=== PATIENT | female | born 1980 | race Caucasian/White ===

== ENCOUNTER 2017-01-25 14:34 | Emergency (ER) | payer MEDICAID, OTHER ==
[2017-01-25 16:25] VITALS: BP 144/80
[2017-01-25] MEDS ORDERED: Benzocaine 20% Top Spray 56 GM Bottle TOP STA (17:25)
[2017-01-25] MEDS ORDERED: Lidocaine 4% Top Soln 4 ML LTA Syringe TOP ONE (17:32)
--- NOTE | 2017-01-25 17:41 | EDM.PDOC ---
ED HPI ENT - General Chief Complaint: ENT Problem Stated Complaint: LEFT EAR PAIN Time Seen by Provider: 01/25/17 17:22 Source: Reports: Patient, RN notes reviewed History Limitations: Reports: No limitations - History of Present Illness INITIAL COMMENTS - FREE TEXT/NARRATIVE: 36-year-old female presents emergency department with a complaint of left ear pain that has developed over the last 24 hours she does have a history of recurrent ear infections she's not had any fevers no sore throat no nausea vomiting shortness of breath chest pain denies any drainage - Related Data Allergies/ADRs: Allergies Allergy/AdvReac Type Severity Reaction Status Date / Time nicotine Allergy Other Verified 10/08/16 18:18 Penicillins Allergy Other Verified 10/08/16 18:18 Sulfa (Sulfonamide Allergy Other Verified 10/08/16 18:18 Antibiotics) varenicline tartrate Allergy Other Verified 10/08/16 18:18 [From Chantix] erythromycin base AdvReac Stomach Verified 10/08/16 18:18 Upset Home Meds: Home Meds Albuterol Sulfate [Proair Hfa] 2 puff IH Q4HR PRN 10/29/14 [History] Past Medical History HEENT History: Reports: Impaired vision Other HEENT History: Dry eye syndrome Cardiovascular History: Reports: Arrhythmia, Heart murmur Respiratory History: Reports: Asthma, Bronchitis, recurrent, Pneumonia, recurrent Genitourinary History: Reports: Pyelonephritis 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: Dysfunctional uterine bleeding, Endometriosis, , Other (see below) Other OB/BYN History: chronic ovarian pain Musculoskeletal History: Reports: Arthritis, Fracture Psychiatric History: Reports: PTSD Endocrine/Metabolic History: Reports: Hypothyroidism - Infectious Disease History Infectious Disease History: Reports: C-difficile - Past Surgical History HEENT Surgical History: Reports: Adenoidectomy, Oral surgery, Tonsillectomy Female Surgical History: Reports: Hysterectomy, Salpingo-oophorectomy Dermatological Surgical History: Reports: Other (see below) Social & Family History - Family History Family Medical History: Noncontributory Respiratory: Reports: COPD Psychiatric: Reports: ADHD Endocrine/Metabolic: Reports: Diabetes, type II Oncologic: Reports: Brain, Breast, Colon, Lung, Ovarian, Renal, Uterine - Tobacco Use Smoking Status *Q: Heavy Tobacco Smoker Years of Tobacco use: 15 Packs/Tins Daily: 1 - Caffeine Use Caffeine Use: Reports: Coffee, Energy drinks, Soda - Alcohol Use Days Per Week of Alcohol Use: 4 Number of Drinks Per Day: 2 Total Drinks Per Week: 8 - Recreational Drug Use Recreational Drug Use: Yes Drug Use in Last 12 Months: Yes Recreational Drug Type: Reports: Marijuana/Hashish Recreational Drug Use Frequency: Weekly ED ROS ENT - Review of Systems Review Of Systems: See Below Constitutional: Denies: fever HEENT: Reports: Ear pain. Denies: Ear discharge Respiratory: Reports: no symptoms Cardiovascular: Reports: No symptoms GI/Abdominal: Reports: No symptoms : Reports: no symptoms ED EXAM, ENT - Physical Exam Exam: See Below Exam Limited By: No limitations General Appearance: alert, WD/WN, no apparent distress Eye Exam: bilateral eye: normal inspection Ears: normal external exam, normal canal, hearing grossly normal, normal TMs ( on the right), TM bulging (left), TM dullness (left), TM erythema (left). No: TM perforation Nose: normal inspection, normal mucousa, no blood Mouth/Throat: Normal inspection, Normal gums, Normal lips, Normal oropharynx, Normal teeth Head: atraumatic, normocephalic Neck: normal inspection, supple, non-tender, full range of motion Respiratory/Chest: no respiratory distress, lungs clear, normal breath sounds, no accessory muscle use Cardiovascular: regular rate, rhythm, no murmur Course - Vital Signs Last Recorded V/S: Last Vital Signs Temp 98.7 F 01/25/17 17:03 Pulse 76 01/25/17 17:03 Resp 18 01/25/17 17:03 BP 144/80 H 01/25/17 17:03 Pulse Ox 96 01/25/17 17:03 - Orders/Labs/Meds Meds: Medications Discontinued Medications Generic Name Dose Route Start Last Admin Trade Name Freq PRN Reason Stop Dose Admin Benzocaine 1 gm 01/25/17 17:25 Izcb-S-Ubichls 20% [place] TOP 01/25/17 17:26 NOW STA Lidocaine 4 ml 01/25/17 17:32 Lidocaine 4% Top Soln TOP 01/25/17 17:33 ONETIME ONE Departure - Departure Time of Disposition: 17:40 Disposition: Home, Self-Care 01 Condition: good Clinical Impression: Otitis media Qualifiers: Otitis media type: suppurative Laterality: left Chronicity: acute Recurrence: recurrent Spontaneous tympanic membrane rupture: without spontaneous rupture Qualified Code(s): H66.005 - Acute suppurative otitis media without spontaneous rupture of ear drum, recurrent, left ear Forms: ED Department Discharge Additional Instructions: take full course of antibiotics, use lidocaine as needed for pain control, Please followup with your primary care provider in 3-5 days if not better, please call return to the emergency department with worsening of symptoms. - Assessment/Plan Plan: Assessment Acuity = acute Site and laterality = left otitis media Etiology = probable bacterial cause Manifestations = otalgia Location of injury = home Lab values = none Plan prescription written for Omnicef 300 mg by mouth twice a day in combination with lidocaine solution 2 mL topical left ear every 2 hours as needed followup with primary care in 3-5 days if not better Patient was in agreement with the plan all questions were answered, they were instructed to return to the emergency department or call for worsening symptoms. This note was dictated using [employer] voice recognition software please call with any questions.
[2017-01-25] MEDS ORDERED: Lidocaine 4% Top Soln 50 ML Bottle TOP ONE (18:00)
== END 2017-01-25 17:56 | disposition home or self-care (01) ==
LOC: JP.ED 14:34
DX: H66.005 Acute suppurative otitis media without spontaneous rupture of ear drum, recurrent, left ear (principal); J45.909 Unspecified asthma, uncomplicated; E03.9 Hypothyroidism, unspecified; F17.210 Nicotine dependence, cigarettes, uncomplicated; Z90.710 Acquired absence of both cervix and uterus; Z90.721 Acquired absence of ovaries, unilateral; Z98.890 Other specified postprocedural states; Z88.0 Allergy status to penicillin; Z88.1 Allergy status to other antibiotic agents; Z88.2 Allergy status to sulfonamides; Z88.8 Allergy status to other drugs, medicaments and biological substances
CPT/HCPCS: 99283; A9270

== ENCOUNTER 2017-07-19 14:13 | Emergency (ER) | payer SELFPAY ==
[2017-07-19 14:27] VITALS: BP 134/82
[2017-07-19] MEDS ORDERED: Aspirin 81 MG Tab.Chew PO ONE (14:39)
--- NOTE | 2017-07-19 14:44 | EDM.PDOC ---
ED HPI GENERAL MEDICAL PROBLEM - General Chief Complaint: Upper Extremity Injury/Pain Stated Complaint: RIGHT HAND NUMBNESS Time Seen by Provider: 07/19/17 14:25 Source of Information: Reports: Patient, Old Records History Limitations: Reports: No Limitations - History of Present Illness INITIAL COMMENTS - FREE TEXT/NARRATIVE: 36 yo female here with a few day hx of R index finger numbness and now R hand numbness. No weakness. No hx of carpal tunnel. Smokes 1 ppd x 20 yrs. Unknown cholesterol status. No diabetes. Has a hx of an irregular heart beat. Denies neck pain or pain shooting down her arm in association with coughing or turning her head. Onset: Today Onset Date: 07/19/17 Duration: Hour(s): Location: Reports: Upper Extremity, Right Quality: Reports: Other (numbness) Severity: Moderate Improves with: Reports: None Worsens with: Reports: Other (? 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) (none) - Related Data Allergies Allergy/AdvReac Type Severity Reaction Status Date / Time nicotine Allergy Other Verified 10/08/16 18:18 Penicillins Allergy Other Verified 10/08/16 18:18 Sulfa (Sulfonamide Allergy Other Verified 10/08/16 18:18 Antibiotics) varenicline tartrate Allergy Other Verified 10/08/16 18:18 [From Chantix] erythromycin base AdvReac Stomach Verified 10/08/16 18:18 Upset Home Meds: Home Meds Albuterol Sulfate [Proair Hfa] 2 puff IH Q4HR PRN 10/29/14 [History] Past Medical History HEENT History: Reports: Impaired Vision Other HEENT History: Dry eye syndrome Cardiovascular History: Reports: Arrhythmia, Heart Murmur Respiratory History: Reports: Asthma, Bronchitis, Recurrent, Pneumonia, Recurrent Genitourinary History: Reports: Pyelonephritis 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: Dysfunctional Uterine Bleeding, Endometriosis, , Other (See Below) Other OB/BYN History: chronic ovarian pain Musculoskeletal History: Reports: Arthritis, Fracture Psychiatric History: Reports: PTSD Endocrine/Metabolic History: Reports: Hypothyroidism - Infectious Disease History Infectious Disease History: Reports: C-Difficile - Past Surgical History HEENT Surgical History: Reports: Adenoidectomy, Oral Surgery, Tonsillectomy Female Surgical History: Reports: Hysterectomy, Salpingo-Oophorectomy Dermatological Surgical History: Reports: Other (See Below) Social & Family History - Family History Family Medical History: Noncontributory Respiratory: Reports: COPD Psychiatric: Reports: ADHD Endocrine/Metabolic: Reports: Diabetes, type II Oncologic: Reports: Brain, Breast, Colon, Lung, Ovarian, Renal, Uterine - Tobacco Use Smoking Status *Q: Current Every Day Smoker Years of Tobacco use: 20 Packs/Tins Daily: 1 - Caffeine Use Caffeine Use: Reports: Coffee - Alcohol Use Days Per Week of Alcohol Use: 4 Number of Drinks Per Day: 2 Total Drinks Per Week: 8 - Recreational Drug Use Recreational Drug Use: Yes Drug Use in Last 12 Months: Yes Recreational Drug Type: Reports: Marijuana/Hashish Recreational Drug Use Frequency: Socially Review of Systems - Review of Systems Review Of Systems: See Below Constitutional: Reports: No Symptoms Eyes: Reports: No Symptoms Ears: Reports: No Symptoms Nose: Reports: No Symptoms Mouth/Throat: Reports: No Symptoms Respiratory: Reports: No Symptoms Cardiovascular: Reports: Irregular Heart Rate GI/Abdominal: Reports: No Symptoms Genitourinary: Reports: No Symptoms Musculoskeletal: Reports: No Symptoms Skin: Reports: No Symptoms Neurological: Reports: Numbness (R hand that started a few days ago as index finger numbness. ). Denies: Confusion, Dizziness, Headache, Pre-Existing Deficit, Trouble Speaking, Difficulty Walking, Weakness, Change in Speech, Gait Disturbance Psychiatric: Reports: No Symptoms ED EXAM, GENERAL - Physical Exam Exam: See Below Exam Limited By: No Limitations General Appearance: Alert, WD/WN, No Apparent Distress Eye Exam: Bilateral Eye: EOMI, Normal Inspection, PERRL Ears: Normal External Exam, Normal Canal, Hearing Grossly Normal Ear Exam: Bilateral Ear: Auricle Normal, Canal Normal Nose: Normal Inspection, Normal Mucosa, No Blood Throat/Mouth: Normal Inspection, Normal Lips, Normal Oropharynx, Normal Voice, No Airway Compromise Head: Atraumatic, Normocephalic Neck: Normal Inspection, Supple, Non-Tender Respiratory/Chest: No Respiratory Distress, Lungs Clear, Normal Breath Sounds, No Accessory Muscle Use Cardiovascular: Normal Peripheral Pulses, No Edema, Extra Beats, Irregularly Irregular. No: Bradycardia, Tachycardia GI/Abdominal: Normal Bowel Sounds, Soft Back Exam: Normal Inspection. No: CVA Tenderness (R), CVA Tenderness (L) Extremities: Normal Inspection, Normal Range of Motion, Non-Tender, No Pedal Edema Neurological: Alert, Oriented, CN II-XII Intact, Normal Cognition, Normal Gait, Normal Reflexes, Other ( R hand numb, radial side more numb than ulnar side. Neg Tinnel's or Phalen's tests. ) Psychiatric: Normal Affect, Normal Mood Skin Exam: Warm, Dry, Intact, Normal Color, No Rash Lymphatic: No Adenopathy Course - Vital Signs Last Recorded V/S: Last Vital Signs Temp 36.4 C 07/19/17 14:26 Pulse 70 07/19/17 14:26 Resp 18 07/19/17 14:26 BP 134/82 07/19/17 14:26 Pulse Ox 95 07/19/17 14:26 - Orders/Labs/Meds Orders: Active Orders 24 hr Category Date Time Status Cardiac Monitoring [RC] .As Directed Care 07/19/17 14:36 Active Labs: Laboratory Tests 07/19/17 07/19/17 Range/Units 14:47 14:47 WBC 11.6 H (4.5-11.0) K/uL RBC 5.02 (3.30-5.50) M/uL Hgb 16.7 H (12.0-15.0) g/dL Hct 48.8 H (36.0-48.0) % MCV 97 (80-98) fL MCH 33 H (27-31) pg MCHC 34 (32-36) % Plt Count 327 (150-400) K/uL Sodium 142 (140-148) mmol/L Potassium 4.1 (3.6-5.2) mmol/L Chloride 104 (100-108) mmol/L Carbon Dioxide 31 (21-32) mmol/L Anion Gap 7.3 (5.0-14.0) mmol/L BUN 12 (7-18) mg/dL Creatinine 0.9 (0.6-1.0) mg/dL Est Cr Clr Drug Dosing 85.42 mL/min Estimated GFR (MDRD) > 60 (>60) Glucose 106 (74-106) mg/dL Calcium 9.3 D (8.5-10.1) mg/dL Troponin I < 0.017 (0.000-0.056) ng/mL Meds: Medications Discontinued Medications Generic Name Dose Route Start Last Admin Trade Name Ngozi PRN Reason Stop Dose Admin Aspirin 324 mg 07/19/17 14:39 07/19/17 15:07 Aspirin PO 07/19/17 14:40 324 mg ONETIME ONE Administration - Radiology Interpretation Free Text/Narrative:: Negative Head CT CT Results Date: 07/19/17 CT Results Time: 14:59 Departure - Departure Time of Disposition: 15:40 Disposition: Home, Self-Care 01 Condition: Good Clinical Impression: Numbness of right hand, Tobacco abuse - Discharge Information Referrals: Candido Montenegro Sr, MD [Primary Care Provider] - Forms: ED Department Discharge - My Orders Last 24 Hours: My Active Orders 07/19/17 14:36 Cardiac Monitoring [RC] .As Directed - Assessment/Plan Last 24 Hours: My Active Orders 07/19/17 14:36 Cardiac Monitoring [RC] .As Directed
--- NOTE | 2017-07-19 15:03 | CT ---
Head wo Cont Total DLP 731 mGycm. INDICATION: R hand numbness since awakening today COMPARISON: None. FINDINGS: No acute intracranial hemorrhage, mass, or edema. Ventricular size is within normal limits. Visualized paranasal sinuses and mastoid air cells are clear. Arachnoid granulation left transverse sinus is of no clinical significance. Remainder negative. IMPRESSION: Negative head CT.
== END 2017-07-19 16:46 | disposition home or self-care (01) ==
LOC: JP.ED 14:13
DX: R20.0 Anesthesia of skin (principal); J45.909 Unspecified asthma, uncomplicated; M19.90 Unspecified osteoarthritis, unspecified site; E03.9 Hypothyroidism, unspecified; F17.210 Nicotine dependence, cigarettes, uncomplicated; Z90.710 Acquired absence of both cervix and uterus; Z90.721 Acquired absence of ovaries, unilateral; Z98.890 Other specified postprocedural states; Z88.0 Allergy status to penicillin; Z88.1 Allergy status to other antibiotic agents; Z88.2 Allergy status to sulfonamides; Z88.8 Allergy status to other drugs, medicaments and biological substances
CPT/HCPCS: 36415; 70450; 80048; 84484; 85027; 99284; A9270; 99283

== ENCOUNTER 2020-05-05 06:38 | Emergency (ER) | payer MEDICAID ==
[2020-05-05 06:54] VITALS: BP 124/81; PULSE 92
[2020-05-05] MEDS ORDERED: Tetracaine HCl/PF 0.5% 4 ML Bottle EYELF ONE (07:03)
--- NOTE | 2020-05-05 07:20 | EDM.PDOC ---
ED HPI GENERAL MEDICAL PROBLEM - General Chief Complaint: Eye Problems Stated Complaint: SOMETHING IN LEFT EYE Time Seen by Provider: 05/05/20 07:00 Source of Information: Reports: Patient, Old Records History Limitations: Reports: No Limitations - History of Present Illness INITIAL COMMENTS - FREE TEXT/NARRATIVE: 39 yo female felt something in her L eye last night and flushed it under running water. This morning she awoke to more pain and blurred vision in that eye. Did not see anything in that eye. Tetanus is UTD. Got a ride to the ER. 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) (eye flushed) Left Eye Pain Score (Numeric/FACES): 9 - Related Data Allergies Allergy/AdvReac Type Severity Reaction Status Date / Time nicotine Allergy Other Verified 05/05/20 06:54 Penicillins Allergy Other Verified 05/05/20 06:54 Sulfa (Sulfonamide Allergy Other Verified 05/05/20 06:54 Antibiotics) varenicline tartrate Allergy Other Verified 05/05/20 06:54 [From Chantix] erythromycin base AdvReac Stomach Verified 05/05/20 06:54 Upset Home Meds: Home Meds Albuterol Sulfate [Proair Hfa] 2 puff IH Q4HR PRN 10/29/14 [History] Montelukast [Singulair] 10 mg PO DAILY 05/05/20 [History] Past Medical History HEENT History: Reports: Impaired Vision Other HEENT History: Dry eye syndrome Cardiovascular History: Reports: Arrhythmia, Heart Murmur Respiratory History: Reports: Asthma, Bronchitis, Recurrent, Pneumonia, Recurrent Genitourinary History: Reports: Pyelonephritis 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: Dysfunctional Uterine Bleeding, Endometriosis, , Other (See Below) Other RESIDENT CARE ASSISTANT History: chronic ovarian pain Musculoskeletal History: Reports: Arthritis, Fracture Psychiatric History: Reports: PTSD Endocrine/Metabolic History: Reports: Hypothyroidism - Infectious Disease History Infectious Disease History: Reports: C-Difficile - Past Surgical History HEENT Surgical History: Reports: Adenoidectomy, Oral Surgery, Tonsillectomy Female Surgical History: Reports: Hysterectomy, Salpingo-Oophorectomy Dermatological Surgical History: Reports: Other (See Below) Social & Family History - Family History Family Medical History: Noncontributory Respiratory: Reports: COPD Psychiatric: Reports: ADHD Endocrine/Metabolic: Reports: Diabetes, type II Oncologic: Reports: Brain, Breast, Colon, Lung, Ovarian, Renal, Uterine - Tobacco Use Smoking Status *Q: Current Every Day Smoker Years of Tobacco use: 20 Packs/Tins Daily: 1.5 - Caffeine Use Caffeine Use: Reports: Coffee, Soda - Alcohol Use Days Per Week of Alcohol Use: 4 Number of Drinks Per Day: 2 Total Drinks Per Week: 8 - Recreational Drug Use Recreational Drug Use: Yes Recreational Drug Type: Reports: Marijuana/Hashish Recreational Drug Use Frequency: Monthly ED ROS GENERAL - Review of Systems Review Of Systems: See Below Constitutional: Reports: No Symptoms HEENT: Reports: Eye Pain (L eye), Vision Change. Denies: Eye Discharge Respiratory: Reports: No Symptoms Skin: Reports: No Symptoms Neurological: Reports: No Symptoms ED EXAM GENERAL W FULL EYE - Physical Exam Exam: See Below Exam Limited By: No Limitations General Appearance: Alert, WD/WN, No Apparent Distress Eye Exam: Bilateral Eye: Conjunctival Injection (L eye), EOMI, PERRL Eyelids: Bilateral: Normal Appearance Conjunctiva & Sclera: Right: Normal Appearance, Left: Injected Cornea Exam: Left: Corneal Abrasion (large all across the central cornea), Examined with Flourescein Extraocular Movements: Bilateral: Intact Ears: Normal External Exam, Normal Canal, Hearing Grossly Normal Nose: Normal Inspection Throat/Mouth: Normal Inspection, Normal Lips, Normal Voice, No Airway Compromise Head: Atraumatic, Normocephalic Neck: Normal Inspection Respiratory/Chest: No Respiratory Distress ED EYE w/ Add Procedure - Eye Procedure Alcaine Drops Administered: Yes (tetracaine eye drops) Cyclogel 2 Drops Administered: Left Eye - Additional/Other Procedure(s) Other (Free Text) Procedure(s) [Text1]: fluorescein staining of L eye reveals large central corneal abrasion. Course - Vital Signs Last Recorded V/S: Last Vital Signs Temp 35.5 C L 05/05/20 06:51 Pulse 92 05/05/20 06:51 Resp 16 05/05/20 06:51 BP 124/81 05/05/20 06:51 Pulse Ox 95 05/05/20 06:51 - Orders/Labs/Meds Meds: Medications Discontinued Medications Generic Name Dose Route Start Last Admin Trade Name Ngozi PRN Reason Stop Dose Admin Tetracaine HCl 1 ml 05/05/20 07:03 05/05/20 07:06 Tetracaine 0.5% Steri-Unit Dora EYELF 05/05/20 07:04 1 ml ASDIRECTED ONE Administration Departure - Departure Time of Disposition: 07:40 Disposition: Home, Self-Care 01 Condition: Fair Clinical Impression: Corneal abrasion Qualifiers: Encounter type: initial encounter Laterality: left Qualified Code(s): S05.02XA - Injury of conjunctiva and corneal abrasion without foreign body, left eye, initial encounter - Discharge Information *PRESCRIPTION DRUG MONITORING PROGRAM REVIEWED*: No *COPY OF PRESCRIPTION DRUG MONITORING REPORT IN PATIENT DEMETRA: No Instructions: Corneal Abrasion, [id number] Referrals: PCP,None [Primary Care Provider] - Forms: ED Department Discharge Additional Instructions: No rubbing of the affected eye. Rest in a dark room for the next 24 hrs. Apply Erythromycin ointment 1/2 inch strip to the left eye approx every 8hrs for the next 24-36 hrs. Recheck tomorrow afternoon with an eye doctor if you are having any continued blurring or pain. Take ibuprofen 400 mg every 6 hrs and if needed [place] for pain relief. Sepsis Event Note (ED) - Evaluation Sepsis Screening Result: No Definite Risk - Focused Exam Vital Signs: Vital Signs Temp Pulse Resp BP Pulse Ox 05/05/20 06:51 35.5 C L 92 16 124/81 95
[2020-05-05] MEDS ORDERED: Cyclopentolate 1% Opth Soln 2 ML Bottle EYELF ONE (07:21)
== END 2020-05-05 07:54 | disposition home or self-care (01) ==
LOC: JP.ED 06:38
DX: S05.02XA Injury of conjunctiva and corneal abrasion without foreign body, left eye, initial encounter (principal); J45.909 Unspecified asthma, uncomplicated; F17.210 Nicotine dependence, cigarettes, uncomplicated; Z88.0 Allergy status to penicillin; Z88.8 Allergy status to other drugs, medicaments and biological substances; Z88.2 Allergy status to sulfonamides; Z88.1 Allergy status to other antibiotic agents; Z79.899 Other long term (current) drug therapy; X58.XXXA Exposure to other specified factors, initial encounter
CPT/HCPCS: 99283

== ENCOUNTER 2020-06-23 12:28 | Emergency (ER) | payer MEDICAID ==
[2020-06-23 12:54] VITALS: BP 120/67; PULSE 84
[2020-06-23] MEDS ORDERED: Proparacaine 0.5% Ophth Soln 15 ML Bottle EYELF ONE (13:16)
--- NOTE | 2020-06-23 13:35 | EDM.PDOC ---
ED HPI GENERAL MEDICAL PROBLEM - General Chief Complaint: Eye Problems Stated Complaint: SCRATCHED LEFT EYE Time Seen by Provider: 06/23/20 13:15 Source of Information: Reports: Patient History Limitations: Reports: No Limitations - History of Present Illness INITIAL COMMENTS - FREE TEXT/NARRATIVE: 39-year-old female with left eye irritation since this morning which she thinks she got some sand in her eye and rubbed her eye. It is now very irritated, she is photophobic and having trouble opening her eye. Something similar happened earlier this year where she had a very large abrasion. She does not wear contacts. Onset: Sudden Duration: Hour(s): (Symptoms started about 4 hours ago) left eye Pain Score (Numeric/FACES): 7 - Related Data Allergies Allergy/AdvReac Type Severity Reaction Status Date / Time nicotine Allergy Other Verified 05/05/20 06:54 Penicillins Allergy Other Verified 05/05/20 06:54 Sulfa (Sulfonamide Allergy Other Verified 05/05/20 06:54 Antibiotics) varenicline tartrate Allergy Other Verified 05/05/20 06:54 [From Chantix] erythromycin base AdvReac Stomach Verified 05/05/20 06:54 Upset erythromycin eye oint Allergy Swelling Uncoded 06/23/20 12:49 Home Meds: Home Meds Albuterol Sulfate [Proair Hfa] 2 puff IH Q4HR PRN 10/29/14 [History] Montelukast [Singulair] 10 mg PO DAILY 05/05/20 [History] Past Medical History HEENT History: Reports: Impaired Vision Other HEENT History: Dry eye syndrome Cardiovascular History: Reports: Arrhythmia, Heart Murmur Respiratory History: Reports: Asthma, Bronchitis, Recurrent, Pneumonia, Recurrent Genitourinary History: Reports: Pyelonephritis 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: Dysfunctional Uterine Bleeding, Endometriosis, , Other (See Below) Other RELAY ASSEMBLER History: chronic ovarian pain Musculoskeletal History: Reports: Arthritis, Fracture Psychiatric History: Reports: PTSD Endocrine/Metabolic History: Reports: Hypothyroidism - Infectious Disease History Infectious Disease History: Reports: C-Difficile - Past Surgical History HEENT Surgical History: Reports: Adenoidectomy, Oral Surgery, Tonsillectomy Cardiovascular Surgical History: Reports: None Female Surgical History: Reports: Hysterectomy Social & Family History - Family History Family Medical History: Noncontributory Respiratory: Reports: COPD Psychiatric: Reports: ADHD Endocrine/Metabolic: Reports: Diabetes, type II Oncologic: Reports: Brain, Breast, Colon, Lung, Ovarian, Renal, Uterine - Tobacco Use Smoking Status *Q: Current Every Day Smoker Years of Tobacco use: 20 Packs/Tins Daily: 1 - Caffeine Use Caffeine Use: Reports: Coffee, Soda - Recreational Drug Use Recreational Drug Use: Yes Recreational Drug Type: Reports: Marijuana/Hashish ED ROS GENERAL - Review of Systems Review Of Systems: See Below Constitutional: Denies: Fever, Chills HEENT: Reports: Eye Pain (Left eye), Vision Change (Blurry vision in the left eye) Respiratory: Denies: Shortness of Breath GI/Abdominal: Denies: Nausea, Vomiting ED EXAM GENERAL W FULL EYE - Physical Exam Exam: See Below Exam Limited By: No Limitations General Appearance: Alert, Mild Distress Eye Exam: Bilateral Eye: Conjunctival Injection, PERRL Eyelids: Left: Erythema Conjunctiva & Sclera: Left: Conjunctival Edema, Injected Cornea Exam: Left: Normal Appearance Extraocular Movements: Bilateral: Intact Head: Atraumatic Course - Vital Signs Last Recorded V/S: Last Vital Signs Temp 97.9 F 06/23/20 12:56 Pulse 84 06/23/20 12:56 Resp 16 06/23/20 12:56 BP 120/67 06/23/20 12:56 Pulse Ox 91 L 06/23/20 12:56 - Orders/Labs/Meds Meds: Medications Discontinued Medications Generic Name Dose Route Start Last Admin Trade Name Freq PRN Reason Stop Dose Admin Proparacaine HCl 1 ml 06/23/20 13:16 06/23/20 13:40 Proparacaine 0.5% Ophth Soln EYELF 06/23/20 13:17 1 drop ONETIME ONE Administration - Re-Assessments/Exams Free Text/Narrative Re-Assessment/Exam: 06/23/20 13:32 Proparacaine drops were placed into the left eye which reduced her pain significantly. Fluorescein stain was then used along with a blue light, no obvious significant trauma to the eye was seen. I contacted [facility], her regular eye care provider and they kindly agreed to see her for an exam later today. Departure - Departure Time of Disposition: 13:42 Disposition: Home, Self-Care 01 Clinical Impression: Left cornea abrasion Qualifiers: Encounter type: initial encounter Qualified Code(s): S05.02XA - Injury of conjunctiva and corneal abrasion without foreign body, left eye, initial encounter - Discharge Information Instructions: Corneal Abrasion Referrals: PCP,None [Primary Care Provider] - Forms: ED Department Discharge Care Plan Goals: Go over to the [facility] and they will work you in sometime in the next few hours for a good eye exam and arrange treatment and follow-up. Sepsis Event Note (ED) - Evaluation Sepsis Screening Result: No Definite Risk - Focused Exam Vital Signs: Vital Signs Temp Pulse Resp BP Pulse Ox 06/23/20 12:56 97.9 F 84 16 120/67 91 L 06/23/20 12:43 97.9 F 84 16 120/67 91 L
== END 2020-06-23 13:42 | disposition home or self-care (01) ==
LOC: JP.ED 12:28
DX: S05.02XA Injury of conjunctiva and corneal abrasion without foreign body, left eye, initial encounter (principal); J45.909 Unspecified asthma, uncomplicated; F17.210 Nicotine dependence, cigarettes, uncomplicated; Z88.8 Allergy status to other drugs, medicaments and biological substances; Z88.0 Allergy status to penicillin; Z88.2 Allergy status to sulfonamides; Z88.1 Allergy status to other antibiotic agents; Z79.899 Other long term (current) drug therapy; X58.XXXA Exposure to other specified factors, initial encounter
CPT/HCPCS: 99283; A9270

== ENCOUNTER 2021-07-22 07:11 | Inpatient (IN) | payer MEDICAID ==
[2021-07-22] MEDS ORDERED: Acetaminophen 500 MG Tab PO ONE (07:15)
[2021-07-22] MEDS ORDERED: Glycopyrrolate 0.2 MG/ML 5 ML MDV ONE (07:18)
[2021-07-22] MEDS ORDERED: fentaNYL 250 MCG/5 ML SDV ONE ×2 (07:18→10:11)
[2021-07-22] MEDS ORDERED: Propofol 200 MG/20 ML SDV ONE (07:18)
[2021-07-22] MEDS ORDERED: Neostigmine Methylsulfate 1 MG/ML 5 ML Syringe ONE (07:18)
[2021-07-22] MEDS ORDERED: Rocuronium 50 MG/5 ML Vial ONE (07:18)
[2021-07-22] MEDS ORDERED: Ondansetron 4 MG/2 ML SDV ONE (07:18)
[2021-07-22] MEDS ORDERED: Dexamethasone 4 MG/ML SDV ONE (07:18)
[2021-07-22] MEDS ORDERED: Succinylcholine 200 MG/10 ML MDV ONE (07:18)
[2021-07-22] MEDS ORDERED: Albuterol/Ipratropium 3.0-0.5 MG/3 ML Neb Soln NEB ONE (08:13)
[2021-07-22] MEDS: Dextrose 5%-Lactated Ringers 1,000 ML IV SCH ×3 (08:26→22:41)
[2021-07-22] MEDS ORDERED: cefOXitin 2 GM in Sodium Chloride 0.9% 50 ML IV ONE (08:45)
[2021-07-22] MEDS ORDERED: Ketamine 50 MG in Sodium Chloride 0.9% 49.5 ML IV SCH (09:00)
[2021-07-22] MEDS ORDERED: Ketamine 500 MG/5 ML MDV IV SCH (09:00)
[2021-07-22] MEDS ORDERED: Ropivacaine 40 ML, dexAMETHasone 8 MG, EPINEPHrine 0.4 MG, Sodium Chloride 0.9% 37.6 ML NERVRT SCH ×4 (09:00)
[2021-07-22] MEDS: Bupivacaine 0.5%/EPINEPHrine 1:200,000 50 ML MDV ONE ×2 (10:13→10:47)
[2021-07-22] MEDS ORDERED: Lactated Ringers 1,000 ML ONE (10:39)
[2021-07-22] MEDS ORDERED: oxyCODONE 5 MG Tab PO PRN (12:15)
[2021-07-22] MEDS ORDERED: HYDROmorphone 1 MG/ML Syringe IV PRN (13:00)
[2021-07-22] MEDS ORDERED: Albuterol/Ipratropium 3.0-0.5 MG/3 ML Neb Soln INH PRN (13:00)
[2021-07-22] MEDS ORDERED: Ondansetron 4 MG/2 ML SDV IVPUSH PRN (13:00)
[2021-07-22] MEDS ORDERED: hydrOXYzine HCL 100 MG/2 ML SDV IM PRN (13:00)
[2021-07-22] MEDS ORDERED: HYDROmorphone 0.5 MG/0.5 ML Syringe IVPUSH PRN (13:00)
[2021-07-22] MEDS: hydrOXYzine HCl 25 MG Tab PO PRN ×3 (13:03→21:06)
[2021-07-22] MEDS: Albuterol/Ipratropium 3.0-0.5 MG/3 ML Neb Soln INH SCH ×2 (14:33→21:07)
[2021-07-22] MEDS: cefOXitin 2 GM in Sodium Chloride 0.9% 50 ML IV SCH ×2 (16:37→22:35)
[2021-07-22] MEDS: SYMBICORT INH SCH (21:07)
[2021-07-23] MEDS: hydrOXYzine HCl 25 MG Tab PO PRN ×2 (01:29→07:27)
[2021-07-23] MEDS: cefOXitin 2 GM in Sodium Chloride 0.9% 50 ML IV SCH (04:14)
[2021-07-23] MEDS: Albuterol/Ipratropium 3.0-0.5 MG/3 ML Neb Soln INH SCH (06:58)
[2021-07-23] MEDS: SYMBICORT INH SCH (07:03)
[2021-07-23 07:29] VITALS: BP 119/56; PULSE 78
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
--- NOTE | 2021-08-01 12:47 | OR ---
DATE OF PROCEDURE: 07/22/2021 SURGEON: Gonzalez Muro MD PREOPERATIVE DIAGNOSIS: Chronic right lower quadrant pain associated with probable enlarged right adnexa. POSTOPERATIVE DIAGNOSIS: Chronic right lower quadrant pain associated with large right adnexa contained by adhesions with a significantly gross inflammation involving the adnexa. OPERATIVE PROCEDURE: Diagnostic laparoscopy with: 1. Right salpingo-oophorectomy (27448). 2. Appendectomy (85798). ANESTHESIA: General. INDICATIONS FOR PROCEDURE: This is a 40-year-old presenting with several-week history of right lower quadrant pain. CT scan was obtained which showed what appeared to be somewhat full right adnexa. Otherwise, no significant pathology was undertaken. Plan is to proceed with diagnostic laparoscopy with at a minimum right salpingo-oophorectomy and we will electively remove the appendix to should the patient have persistent symptoms postoperatively. Potential risks of the procedure including bleeding, infection, injury to underlying viscera, persistent pain following the procedure were all reviewed, and the patient wishes to proceed. DETAILS OF PROCEDURE: The patient was taken to the operating room. After general endotracheal anesthesia was induced, a Barriga catheter was inserted and the abdomen prepped and draped. 2 cm superior to the left of the umbilicus, a transverse incision was made and the peritoneal cavity entered under direct vision with an Optiview trocar, inflated to 15 mmHg pressure with CO2. Laparoscope was then reinserted. No underlying trocar insertion site injuries were seen. Following this, 12 mm trocar was placed in the right upper quadrant and left lower quadrant. The patient was noted to have some adhesions between the midline lower abdomen and the omentum, but these did not appear to obstruct the adequate view of the area of concern. The round ligament was then identified and traced downward. This got down to the level of the right adnexa. The right adnexa consisting of ovarian tube was fairly densely constrained by adhesions. There was some old blood present and quite a bit of gross inflammation present indicating this likely is the site of the patient's discomfort. Those adhesions were adequately dissected free and adnexa mobilized upward. The infundibulopelvic ligament that remained attached to the adnexa was then divided with MANAN radha and specimen delivered from the field. Appendix appeared to be grossly normal, but to avoid the issue of persistent pain in that area and the area of remaining appendix, the appendix was divided at the junction of the cecum with MANAN staple and the underlying mesentery divided with Harmonic scalpel and then appendix was delivered from the field. At this point, no further problems were noted. The left ovary was not visible, but on CT scan it appeared to be normal and further dissection in that area appeared to be contraindicated to avoid any complications dissection. Trocars were then sequentially removed and the peritoneal cavity deflated. Prior to closure, bilateral transversus abdominis plane blocks were then placed and the incisions at each sites were closed with 0 Vicryl stitch at the fascial level and 4-0 Vicryl skin stitch for the skin. The patient was taken to the recovery room in satisfactory condition. There were no evident complications. Gonzalez Muro MD /[id number]
== END 2021-07-23 10:32 | disposition home or self-care (01) | DRG 743 ==
LOC: JP.SDSSCHI 07:11 → JP.SDS 07:11 → JP.MS 11:00 → EDSTATUS 15:45
PROVIDERS: ADMIT Surgery; ATTEND Surgery
PROC: 0UT54ZZ Resection of Right Fallopian Tube, Percutaneous Endoscopic Approach (ICD-10-PCS; principal; 2021-07-22)
PROC: 0UT14ZZ Resection of Left Ovary, Percutaneous Endoscopic Approach (ICD-10-PCS; 2021-07-22)
PROC: 0DTJ4ZZ Resection of Appendix, Percutaneous Endoscopic Approach (ICD-10-PCS; 2021-07-22)
DX: N83.8 Other noninflammatory disorders of ovary, fallopian tube and broad ligament (principal); F17.210 Nicotine dependence, cigarettes, uncomplicated; F41.9 Anxiety disorder, unspecified; F32.9 Major depressive disorder, single episode, unspecified; J45.40 Moderate persistent asthma, uncomplicated; F10.20 Alcohol dependence, uncomplicated; M21.611 Bunion of right foot; H66.90 Otitis media, unspecified, unspecified ear; Z20.822 Contact with and (suspected) exposure to COVID-19; Z90.710 Acquired absence of both cervix and uterus; Z88.0 Allergy status to penicillin; Z88.2 Allergy status to sulfonamides; Z88.1 Allergy status to other antibiotic agents; Z91.410 Personal history of adult physical and sexual abuse
CPT/HCPCS: 36415; 86304; 88304; 88305; 94640; 94762; A9270-GY; J0171; J0330; J0694; J1100; J2405; J2704; J2710; J2795; J3010; J3490; J7120; J7121; J7620-GY; U0002

== ENCOUNTER 2021-12-31 12:04 | Emergency (ER) | payer MEDICAID ==
[2021-12-31] MEDS ORDERED: Morphine 4 MG/ML Syringe IM ONE (12:53)
[2021-12-31] MEDS ORDERED: Lactated Ringers 1,000 ML IV ONE (14:27)
[2021-12-31] MEDS ORDERED: fentaNYL 100 MCG/2 ML SDV IVPUSH ONE (14:28)
[2021-12-31] MEDS ORDERED: Iopamidol 612 MG/ML 100 ML Bottle IV PRN (14:53)
[2021-12-31] MEDS ORDERED: Sodium Chloride 0.9% 75 ML IV SCH (15:00)
[2021-12-31 16:14] VITALS: BP 149/93; PULSE 68
== END 2021-12-31 17:00 | disposition home or self-care (01) ==
LOC: JP.ED 12:04
DX: R10.31 Right lower quadrant pain (principal); J45.909 Unspecified asthma, uncomplicated; Z72.0 Tobacco use; Z90.49 Acquired absence of other specified parts of digestive tract; Z90.710 Acquired absence of both cervix and uterus; Z90.722 Acquired absence of ovaries, bilateral; Z88.0 Allergy status to penicillin; Z88.2 Allergy status to sulfonamides; Z88.8 Allergy status to other drugs, medicaments and biological substances; Z91.048 Other nonmedicinal substance allergy status; Z88.1 Allergy status to other antibiotic agents; Z79.899 Other long term (current) drug therapy
CPT/HCPCS: 36415; 74177; 80048; 80076; 81001; 85025; 86140; 87086; 87088; 87186; 96372; 96374; 99284; J2270; J3010; J7120; Q9967

== ENCOUNTER 2023-05-24 12:48 | Emergency (ER) | payer MEDICAID ==
[2023-05-24] MEDS ORDERED: Albuterol/Ipratropium 3.0-0.5 MG/3 ML Neb Soln NEB ONE (13:20)
[2023-05-24 13:33] LABS: HEMATOCRIT 43.1 % (34.3-46.0); HEMOGLOBIN 14.9 g/dL (11.2-15.5); MEAN CORPUSCULAR HEMOGLOBIN 33.6 pg (31.6-35.5); MEAN CORPUSCULAR HGB CONC 34.6 g/dL (31.6-35.5); MEAN CORPUSCULAR VOLUME 97.3 fL (81.4-99.0); RED BLOOD CELL COUNT 4.43 M/uL (3.77-5.24); WHITE BLOOD CELL COUNT,WBC 11.3 K/uL (3.2-11.0)
[2023-05-24 13:58] LABS: CREATININE 0.9 mg/dL (0.6-1.0); EST CRCL DRUG DOSING (CG) 80.8 mL/min
[2023-05-24] MEDS ORDERED: Sodium Chloride 0.9% 10 ML Syringe FLUSH PRN (14:28)
[2023-05-24] MEDS ORDERED: Sodium Chloride 0.9% 1,000 ML IV SCH (14:30)
[2023-05-24] MEDS ORDERED: Iopamidol 612 MG/ML 100 ML Bottle IV ONE (14:38)
[2023-05-24] MEDS ORDERED: Sodium Chloride 0.9% 10 ML Syringe FLUSH ONE (14:38)
[2023-05-24] MEDS ORDERED: Sodium Chloride 0.9% 50 ML IV ONE (14:38)
[2023-05-24 16:57] VITALS: BP 143/69; PULSE 55
[2023-05-24] MEDS ORDERED: Aspirin 81 MG Tab.Chew PO ONE (17:23)
== END 2023-05-24 19:26 | disposition home or self-care (01) ==
LOC: JP.ED 12:48
DX: J45.901 Unspecified asthma with (acute) exacerbation (principal); F41.0 Panic disorder [episodic paroxysmal anxiety]; K21.9 Gastro-esophageal reflux disease without esophagitis; E03.9 Hypothyroidism, unspecified; Z72.0 Tobacco use; Z88.0 Allergy status to penicillin; Z88.2 Allergy status to sulfonamides; Z88.1 Allergy status to other antibiotic agents; Z79.899 Other long term (current) drug therapy
CPT/HCPCS: 36415; 71260; 80048; 84484; 85027; 85379; 93005; 94640; 99285; A9270; J3490; J7030; Q9967; J7620

== ENCOUNTER 2023-06-25 12:47 | Emergency (ER) | payer MEDICAID ==
[2023-06-25 13:25] LABS: BASOPHILS ABSOLUTE AUTO 0.09 K/uL (0.00-0.10); BASOPHILS PERCENT AUTO 0.8 % (0.1-1.3); EOSINOPHILS ABSOLUTE AUTO 0.06 K/uL (0.00-0.40); EOSINOPHILS PERCENT AUTO 0.5 % (0.0-5.4); HEMATOCRIT 42.2 % (34.3-46.0); HEMOGLOBIN 15.1 g/dL (11.2-15.5); IMMATURE GRAN ABSOLUTE AUTO 0.04 K/uL (0.00-0.23); IMMATURE GRAN PERCENT AUTO 0.4 % (0.0-0.7); LYMPHOCYTES ABSOLUTE AUTO 3.22 K/uL (0.8-3.3); LYMPHOCYTES PERCENT AUTO 28.4 % (11.4-47.7); MEAN CORPUSCULAR HEMOGLOBIN 34.2 pg (31.6-35.5); MEAN CORPUSCULAR HGB CONC 35.8 g/dL (31.6-35.5); MEAN CORPUSCULAR VOLUME 95.7 fL (81.4-99.0); MONOCYTES ABSOLUTE AUTO 0.84 K/uL (0.20-0.90); MONOCYTES PERCENT AUTO 7.4 % (3.3-12.6); NEUTROPHILS PERCENT AUTO 62.5 % (40.0-78.1); PLATELET COUNT,PLT 293 K/uL (130-375); RED BLOOD CELL COUNT 4.41 M/uL (3.77-5.24); WHITE BLOOD CELL COUNT,WBC 11.4 K/uL (3.2-11.0)
[2023-06-25 13:51] LABS: ANION GAP 9.7 mmol/L (5.0-14.0); CALCIUM 8.8 mg/dL (8.5-10.1); CREATININE 0.7 mg/dL (0.6-1.0); EST CRCL DRUG DOSING (CG) 103.89 mL/min; POTASSIUM,K 3.9 mmol/L (3.6-5.2)
[2023-06-25 13:54] LABS: TROPONIN I HIGH SENSITIVITY 68.1 pg/mL (<=60.3)
[2023-06-25] MEDS ORDERED: Morphine 2 MG/ML SYRINGE IVPUSH ONE (14:28)
[2023-06-25] MEDS ORDERED: Sodium Chloride 0.9% 10 ML Syringe FLUSH PRN (14:30)
[2023-06-25] MEDS ORDERED: Heparin Sodium 5,000 Units/ML Vial IVPUSH ONE (16:31)
[2023-06-25] MEDS ORDERED: Heparin Sodium/D5W 25,000 UNITS/500 ML BAG IV SCH (16:45)
[2023-06-25] MEDS: Morphine 2 MG/ML SYRINGE IVPUSH PRN ×2 (16:56→19:13)
[2023-06-25 17:17] LABS: PROTHROMBIN TIME 10.1 sec (9.2-10.6); PTT,PARTIAL THROMBOPLSTIN TIME 23.8 sec (21.8-27.3)
[2023-06-25 17:20] LABS: MAGNESIUM 1.5 mg/dL (1.8-2.4)
[2023-06-25 17:24] LABS: TROPONIN I HIGH SENSITIVITY 457.1 pg/mL (<=60.3)
[2023-06-25 18:42] VITALS: BP 154/80; PULSE 69
== END 2023-06-25 19:27 ==
LOC: JP.ED 12:47
DX: I21.4 Non-ST elevation (NSTEMI) myocardial infarction (principal); J45.909 Unspecified asthma, uncomplicated; F17.210 Nicotine dependence, cigarettes, uncomplicated; Z88.0 Allergy status to penicillin; Z88.2 Allergy status to sulfonamides; Z88.1 Allergy status to other antibiotic agents
CPT/HCPCS: 36415; 80048; 83735; 84484; 85025; 85610; 85730; 93005; 96365; 96366; 96375; 96376; 99285; J1644; J2270; J3490

== ENCOUNTER 2023-07-02 05:57 | Emergency (ER) | payer MEDICAID ==
[2023-07-02] MEDS ORDERED: Sodium Chloride 0.9% 10 ML Syringe FLUSH PRN (06:00)
[2023-07-02] MEDS ORDERED: Aspirin 81 MG Tab.Chew PO ONE (06:05)
[2023-07-02 06:06] LABS: HEMATOCRIT 46.9 % (34.3-46.0); HEMOGLOBIN 16.5 g/dL (11.2-15.5); MEAN CORPUSCULAR HEMOGLOBIN 34.2 pg (31.6-35.5); MEAN CORPUSCULAR HGB CONC 35.2 g/dL (31.6-35.5); MEAN CORPUSCULAR VOLUME 97.3 fL (81.4-99.0); PLATELET COUNT,PLT 338 K/uL (130-375); RED BLOOD CELL COUNT 4.82 M/uL (3.77-5.24); WHITE BLOOD CELL COUNT,WBC 13.6 K/uL (3.2-11.0)
[2023-07-02 06:30] LABS: A/G RATIO 1.1 (1.2-2.2); ALANINE AMINOTRANSFERASE,ALT 36 U/L (12-78); ALBUMIN 4.1 g/dL (3.4-5.0); ALKALINE PHOSPHATASE 62 U/L (46-116); ASPARTATE AMNIOTRANSFERASE,AST 22 U/L (15-37); BILIRUBIN TOTAL 0.9 mg/dL (0.2-1.0); BLOOD UREA NITROGEN,BUN 22 mg/dL (7-18); C-REACTIVE PROTEIN 0.47 mg/dL (0.0-0.3); CARBON DIOXIDE,CO2 28 mmol/L (21-32); CHLORIDE,CL 98 mmol/L (100-108); EST CRCL DRUG DOSING (CG) 72.72 mL/min; ESTIMATED GFR 73 mL/min (>60); GLUCOSE RANDOM 161 mg/dL (74-106); POTASSIUM,K 3.9 mmol/L (3.6-5.2); PRO B-TYPE NATRIUR PEPT,BNPPRO 195 pg/mL (5-125); SODIUM,NA 137 mmol/L (140-148); TROPONIN I HIGH SENSITIVITY 33.7 pg/mL (<=60.3)
[2023-07-02 06:37] LABS: ATYPICAL LYMPHOCYTES FEW; EOSINOPHILS ABSOLUTE MAN 0.14 K/uL (0.00-0.40); EOSINOPHILS PERCENT MAN 1 % (2-4); LYMPHOCYTES ABSOLUTE MAN 7.34 K/uL (0.8-3.3); LYMPHOCYTES PERCENT MAN 54 % (24-44); MONOCYTES ABSOLUTE MAN 0.95 K/uL (0.20-0.90); MONOCYTES PERCENT MAN 7 % (2-6); NEUTROPHILS ABSOLUTE MAN 5.17 K/uL (1.0-7.6); SEG NEUTROPHILS PERCENT MAN 38 % (36-66)
[2023-07-02 06:47] LABS: ANION GAP 14.9 mmol/L (5.0-14.0)
[2023-07-02] MEDS ORDERED: Nitroglycerin 0.4 MG Tab.SL ONE (07:15)
[2023-07-02] MEDS ORDERED: Heparin Sodium 5,000 Units/ML Vial IVPUSH ONE (07:16)
[2023-07-02] MEDS: Nitroglycerin 0.4 MG Tab.SL SL PRN ×2 (07:20→08:26)
[2023-07-02] MEDS ORDERED: Morphine 4 MG/ML Syringe IVPUSH ONE (07:21)
[2023-07-02] MEDS ORDERED: Heparin Sodium/D5W 25,000 UNITS/500 ML BAG IV SCH (07:30)
[2023-07-02 08:06] VITALS: PULSE 70
[2023-07-02 08:27] VITALS: BP 112/66
== END 2023-07-02 08:51 ==
LOC: JP.ED 05:57
DX: I21.19 ST elevation (STEMI) myocardial infarction involving other coronary artery of inferior wall (principal); I42.9 Cardiomyopathy, unspecified; J45.909 Unspecified asthma, uncomplicated; K21.9 Gastro-esophageal reflux disease without esophagitis; Z88.0 Allergy status to penicillin; Z88.2 Allergy status to sulfonamides; Z88.1 Allergy status to other antibiotic agents; Z20.822 Contact with and (suspected) exposure to COVID-19
CPT/HCPCS: 36415; 71045; 80053; 83880; 84484; 85025; 85379; 85730; 86140; 87635; 93005; 93010; 96365; 96375; 96376; 99285; A9270; J1644; J2270; J3490; U0002

== ENCOUNTER 2023-08-13 22:49 | Emergency (ER) | payer MEDICAID ==
[2023-08-13] MEDS ORDERED: Morphine 4 MG/ML Syringe IVPUSH PRN (22:55)
[2023-08-13] MEDS ORDERED: Aspirin 81 MG Tab.Chew PO ONE (22:55)
[2023-08-13] MEDS ORDERED: Sodium Chloride 0.9% 10 ML Syringe FLUSH PRN (22:55)
[2023-08-13] MEDS ORDERED: LORazepam 2 MG/ML SDV IVPUSH ONE (22:58)
[2023-08-13 23:19] LABS: A/G RATIO 1.1 (1.2-2.2); ALANINE AMINOTRANSFERASE,ALT 81 U/L (12-78); ALBUMIN 3.9 g/dL (3.4-5.0); ALKALINE PHOSPHATASE 59 U/L (46-116); ASPARTATE AMNIOTRANSFERASE,AST 37 U/L (15-37); BILIRUBIN TOTAL 0.3 mg/dL (0.2-1.0); BLOOD UREA NITROGEN,BUN 9 mg/dL (7-18); CALCIUM 8.5 mg/dL (8.5-10.1); CARBON DIOXIDE,CO2 28 mmol/L (21-32); CHLORIDE,CL 103 mmol/L (100-108); CREATININE 0.6 mg/dL (0.6-1.0); ESTIMATED GFR 116 mL/min (>60); GLUCOSE RANDOM 131 mg/dL (74-106); PROTEIN TOTAL,TP 7.4 g/dL (6.4-8.2); SODIUM,NA 142 mmol/L (140-148)
[2023-08-13 23:23] LABS: HEMATOCRIT 45.3 % (34.3-46.0); HEMOGLOBIN 16.6 g/dL (11.2-15.5); MEAN CORPUSCULAR HEMOGLOBIN 34.9 pg (31.6-35.5); MEAN CORPUSCULAR HGB CONC 36.6 g/dL (31.6-35.5); MEAN CORPUSCULAR VOLUME 95.4 fL (81.4-99.0); PLATELET COUNT,PLT 323 K/uL (130-375); RED BLOOD CELL COUNT 4.75 M/uL (3.77-5.24); WHITE BLOOD CELL COUNT,WBC 14.7 K/uL (3.2-11.0)
[2023-08-13 23:24] LABS: ATYPICAL LYMPHOCYTES FEW; EOSINOPHILS ABSOLUTE MAN 0.15 K/uL (0.00-0.40); EOSINOPHILS PERCENT MAN 1 % (2-4); LYMPHOCYTES PERCENT MAN 68 % (24-44); MONOCYTES ABSOLUTE MAN 1.47 K/uL (0.20-0.90); MONOCYTES PERCENT MAN 10 % (2-6); NEUTROPHILS ABSOLUTE MAN 3.09 K/uL (1.0-7.6); SEG NEUTROPHILS PERCENT MAN 21 % (36-66); TROPONIN I HIGH SENSITIVITY < 4.0 pg/mL (<=60.3)
[2023-08-14 02:41] VITALS: BP 103/58; PULSE 93
== END 2023-08-14 03:35 | disposition home or self-care (01) ==
LOC: JP.ED 22:49
DX: R07.89 Other chest pain (principal); J45.909 Unspecified asthma, uncomplicated; Z86.16 Personal history of COVID-19; Z79.899 Other long term (current) drug therapy; Z88.0 Allergy status to penicillin; Z88.1 Allergy status to other antibiotic agents; Z88.2 Allergy status to sulfonamides
CPT/HCPCS: 36415; 71045; 80053; 84484; 85025; 93005; 96374; 99285; A9270; J2060

== ENCOUNTER 2023-08-19 11:32 | Emergency (ER) | payer MEDICAID ==
[2023-08-19] MEDS ORDERED: Albuterol/Ipratropium 3.0-0.5 MG/3 ML Neb Soln NEB ONE (12:49)
[2023-08-19 12:55] LABS: BASOPHILS ABSOLUTE AUTO 0.09 K/uL (0.00-0.10); BASOPHILS PERCENT AUTO 1.2 % (0.1-1.3); EOSINOPHILS PERCENT AUTO 1.3 % (0.0-5.4); HEMATOCRIT 42.8 % (34.3-46.0); HEMOGLOBIN 15.6 g/dL (11.2-15.5); IMMATURE GRAN PERCENT AUTO 0.1 % (0.0-0.7); LYMPHOCYTES ABSOLUTE AUTO 3.98 K/uL (0.8-3.3); MEAN CORPUSCULAR HEMOGLOBIN 34.5 pg (31.6-35.5); MEAN CORPUSCULAR HGB CONC 36.4 g/dL (31.6-35.5); MEAN CORPUSCULAR VOLUME 94.7 fL (81.4-99.0); MONOCYTES ABSOLUTE AUTO 0.68 K/uL (0.20-0.90); MONOCYTES PERCENT AUTO 8.9 % (3.3-12.6); NEUTROPHILS PERCENT AUTO 36.5 % (40.0-78.1); PLATELET COUNT,PLT 341 K/uL (130-375); RED BLOOD CELL COUNT 4.52 M/uL (3.77-5.24); WHITE BLOOD CELL COUNT,WBC 7.7 K/uL (3.2-11.0)
[2023-08-19 12:58] LABS: IMMATURE GRAN ABSOLUTE AUTO 0.01 K/uL (0.00-0.23)
[2023-08-19 13:14] LABS: A/G RATIO 1.1 (1.2-2.2); ALANINE AMINOTRANSFERASE,ALT 99 U/L (12-78); ALBUMIN 3.8 g/dL (3.4-5.0); ALKALINE PHOSPHATASE 57 U/L (46-116); ASPARTATE AMNIOTRANSFERASE,AST 53 U/L (15-37); BILIRUBIN TOTAL 0.4 mg/dL (0.2-1.0); BLOOD UREA NITROGEN,BUN 8 mg/dL (7-18); CALCIUM 8.5 mg/dL (8.5-10.1); CARBON DIOXIDE,CO2 26 mmol/L (21-32); CHLORIDE,CL 100 mmol/L (100-108); CREATININE 0.5 mg/dL (0.6-1.0); EST CRCL DRUG DOSING (CG) 145.44 mL/min; ESTIMATED GFR 122 mL/min (>60); GLUCOSE RANDOM 146 mg/dL (74-106); PRO B-TYPE NATRIUR PEPT,BNPPRO 24 pg/mL (5-125); PROTEIN TOTAL,TP 7.2 g/dL (6.4-8.2); SODIUM,NA 138 mmol/L (140-148); T4 FREE 0.79 ng/dL (0.76-1.46); TSH ULTRASENSITIVE 3.729 uIU/mL (0.358-3.740)
[2023-08-19] MEDS ORDERED: predniSONE 20 MG Tab PO ONE (13:55)
[2023-08-19 14:54] LABS: APPEARANCE,URINE CLOUDY (CLEAR); BILIRUBIN,URINE NEGATIVE (NEGATIVE); COLOR,URINE YELLOW (YELLOW); GLUCOSE,URINE NEGATIVE (NEGATIVE); KETONES,URINE TRACE mg/dL (NEGATIVE); LEUKOCYTE ESTERASE,URINE TRACE (NEGATIVE); NITRITE,URINE NEGATIVE (NEGATIVE); OCCULT BLOOD,URINE TRACE-INTACT (NEGATIVE); PROTEIN,URINE 100 mg/dL (NEGATIVE)
[2023-08-19 15:01] LABS: AMORPHOUS SEDIMENT,URINE NOT SEEN; BACTERIA,URINE MODERATE; EPITHELIAL CELLS,URINE MODERATE; MUCUS,URINE MANY; WBC,URINE 20-30 (0-5)
[2023-08-19] MEDS ORDERED: Potassium Chloride 20 MEQ Tab.ER PO ONE (15:07)
[2023-08-19 16:02] VITALS: BP 103/67; PULSE 81
== END 2023-08-19 15:53 | disposition home or self-care (01) ==
LOC: JP.ED 11:32
DX: J45.41 Moderate persistent asthma with (acute) exacerbation (principal); E87.6 Hypokalemia; I51.81 Takotsubo syndrome; R74.8 Abnormal levels of other serum enzymes; R60.0 Localized edema; F17.210 Nicotine dependence, cigarettes, uncomplicated; Z88.0 Allergy status to penicillin; Z88.1 Allergy status to other antibiotic agents; Z88.2 Allergy status to sulfonamides; Z79.899 Other long term (current) drug therapy; Z86.16 Personal history of COVID-19
CPT/HCPCS: 36415; 71045; 80053; 81001; 83880; 84439; 84443; 85025; 85379; 87086; 87088; 87186; 93005; 94640; 99285; A9270; J7512; J7620

== ENCOUNTER 2023-10-04 11:36 | Emergency (ER) | payer MEDICAID ==
[2023-10-04] MEDS ORDERED: Sodium Chloride 0.9% 10 ML Syringe FLUSH PRN (11:44)
[2023-10-04] MEDS ORDERED: Sodium Chloride 0.9% 1,000 ML IV SCH ×2 (11:45→13:15)
[2023-10-04 11:53] LABS: BASOPHILS PERCENT AUTO 0.8 % (0.1-1.3); EOSINOPHILS PERCENT AUTO 0.8 % (0.0-5.4); HEMATOCRIT 47.9 % (34.3-46.0); IMMATURE GRAN ABSOLUTE AUTO 0.03 K/uL (0.00-0.23); IMMATURE GRAN PERCENT AUTO 0.2 % (0.0-0.7); LYMPHOCYTES ABSOLUTE AUTO 6.77 K/uL (0.8-3.3); LYMPHOCYTES PERCENT AUTO 55.2 % (11.4-47.7); MEAN CORPUSCULAR HEMOGLOBIN 34.2 pg (31.6-35.5); MEAN CORPUSCULAR HGB CONC 35.5 g/dL (31.6-35.5); MEAN CORPUSCULAR VOLUME 96.4 fL (81.4-99.0); MONOCYTES ABSOLUTE AUTO 0.79 K/uL (0.20-0.90); MONOCYTES PERCENT AUTO 6.4 % (3.3-12.6); NEUTROPHILS ABSOLUTE AUTO 4.48 K/uL (1.0-7.6); NEUTROPHILS PERCENT AUTO 36.6 % (40.0-78.1); PLATELET COUNT,PLT 329 K/uL (130-375); RED BLOOD CELL COUNT 4.97 M/uL (3.77-5.24); WHITE BLOOD CELL COUNT,WBC 12.3 K/uL (3.2-11.0)
[2023-10-04 11:54] LABS: BASE EXCESS VENOUS 0.8 mm/L; BICARBONATE,VENOUS 25.7 mmol/L; CARBOXYHEMOGLOBIN 7.2 % (0.0-1.6); METHEMOGLOBIN 1.2 %; O2 SATURATION VENOUS 64.3; OXYHEMOGLOBIN 58.9 %; PCO2 VENOUS 43.7 mm/Hg; PH,VENOUS 7.387 (7.350-7.450); TOTAL HEMOGLOBIN 17.4 g/dL (12.0-16.0)
[2023-10-04 11:55] LABS: PO2 VENOUS 36.3 mm/Hg
[2023-10-04 12:17] LABS: A/G RATIO 1.1 (1.2-2.2); ALANINE AMINOTRANSFERASE,ALT 56 U/L (12-78); ALKALINE PHOSPHATASE 51 U/L (46-116); ANION GAP 12.1 mmol/L (5.0-14.0); ASPARTATE AMNIOTRANSFERASE,AST 31 U/L (15-37); BILIRUBIN TOTAL 0.2 mg/dL (0.2-1.0); BLOOD UREA NITROGEN,BUN 13 mg/dL (7-18); CALCIUM 8.5 mg/dL (8.5-10.1); CARBON DIOXIDE,CO2 27 mmol/L (21-32); CHLORIDE,CL 102 mmol/L (100-108); CREATININE 0.6 mg/dL (0.6-1.0); ESTIMATED GFR 116 mL/min (>60); GLUCOSE RANDOM 118 mg/dL (74-106); POTASSIUM,K 3.6 mmol/L (3.6-5.2); PROTEIN TOTAL,TP 7.7 g/dL (6.4-8.2); SODIUM,NA 141 mmol/L (140-148)
[2023-10-04 12:38] LABS: TSH ULTRASENSITIVE 2.711 uIU/mL (0.358-3.740)
[2023-10-04] MEDS ORDERED: Norepinephrine Bit/D5W Premix 4 MG in Premix Bag 1 BAG IV SCH (13:15)
[2023-10-04 14:13] LABS: CORONAVIRUS COVID-19 NAA NEGATIVE (NEGATIVE); INFLUENZA A NAA NEGATIVE (NEGATIVE); INFLUENZA B NAA NEGATIVE (NEGATIVE); RESPIRATORY SYNCYTIAL VIR NAA NEGATIVE (NEGATIVE)
[2023-10-04] MEDS ORDERED: Ketamine 500 MG/5 ML MDV IV ONE (14:27)
[2023-10-04 15:44] LABS: AMPHETAMINES SCREEN, URINE NEGATIVE (NEGATIVE); BARBITURATE SCREEN,URINE NEGATIVE (NEGATIVE); BENZODIAZEPINES SCREEN,URINE NEGATIVE (NEGATIVE); METHADONE SCREEN, URINE NEGATIVE (NEGATIVE); METHAMPHETAMINES SCREEN, URINE NEGATIVE (NEGATIVE); OXYCODONE SCREEN,URINE NEGATIVE (NEGATIVE); PROPOXYPHENE SCREEN,URINE NEGATIVE (NEGATIVE); THC SCREEN,URINE 50 NG/ML NEGATIVE (NEGATIVE)
[2023-10-04] MEDS ORDERED: Nicotine 21 MG/24 Hr Patch TRDERM ONE (16:37)
[2023-10-04] MEDS: Nicotine Polacrilex 2 MG Gum CHEW PRN ×3 (16:44→22:51)
[2023-10-04 23:05] VITALS: BP 104/65; PULSE 92
== END 2023-10-05 00:22 ==
LOC: JP.ED 11:36
DX: T46.7X2A Poisoning by peripheral vasodilators, intentional self-harm, initial encounter (principal); I51.81 Takotsubo syndrome; F43.10 Post-traumatic stress disorder, unspecified; E03.9 Hypothyroidism, unspecified; I50.9 Heart failure, unspecified; I25.2 Old myocardial infarction; E78.00 Pure hypercholesterolemia, unspecified; J45.909 Unspecified asthma, uncomplicated; K21.9 Gastro-esophageal reflux disease without esophagitis; M19.90 Unspecified osteoarthritis, unspecified site; Z20.822 Contact with and (suspected) exposure to COVID-19; Z79.82 Long term (current) use of aspirin; Z79.899 Other long term (current) drug therapy; Z88.2 Allergy status to sulfonamides; Z88.0 Allergy status to penicillin; Z88.1 Allergy status to other antibiotic agents
CPT/HCPCS: 0241U; 36415; 80053; 80143; 80179; 80305-QW; 80307; 82803; 82947; 84443; 85025; 93005; 93010; 96365; 96366; 99285; 99285-25; A9270-GY; J3490; J7030

== ENCOUNTER 2023-11-11 16:02 | Emergency (ER) | payer MEDICAID ==
[2023-11-11 16:18] LABS: BASOPHILS ABSOLUTE AUTO 0.12 K/uL (0.00-0.10); BASOPHILS PERCENT AUTO 1.1 % (0.1-1.3); EOSINOPHILS ABSOLUTE AUTO 0.06 K/uL (0.00-0.40); EOSINOPHILS PERCENT AUTO 0.5 % (0.0-5.4); HEMOGLOBIN 17.7 g/dL (11.2-15.5); IMMATURE GRAN PERCENT AUTO 0.2 % (0.0-0.7); LYMPHOCYTES ABSOLUTE AUTO 5.96 K/uL (0.8-3.3); LYMPHOCYTES PERCENT AUTO 52.4 % (11.4-47.7); MEAN CORPUSCULAR HEMOGLOBIN 34.2 pg (31.6-35.5); MEAN CORPUSCULAR HGB CONC 36.1 g/dL (31.6-35.5); MEAN CORPUSCULAR VOLUME 94.8 fL (81.4-99.0); MONOCYTES ABSOLUTE AUTO 0.83 K/uL (0.20-0.90); MONOCYTES PERCENT AUTO 7.3 % (3.3-12.6); NEUTROPHILS ABSOLUTE AUTO 4.38 K/uL (1.0-7.6); NEUTROPHILS PERCENT AUTO 38.5 % (40.0-78.1); PLATELET COUNT,PLT 256 K/uL (130-375); RED BLOOD CELL COUNT 5.17 M/uL (3.77-5.24); WHITE BLOOD CELL COUNT,WBC 11.4 K/uL (3.2-11.0)
[2023-11-11 16:19] LABS: IMMATURE GRAN ABSOLUTE AUTO 0.02 K/uL (0.00-0.23)
[2023-11-11 16:39] LABS: A/G RATIO 1.3 (1.2-2.2); ALANINE AMINOTRANSFERASE,ALT 286 U/L (12-78); ALBUMIN 4.8 g/dL (3.4-5.0); ALKALINE PHOSPHATASE 75 U/L (46-116); ASPARTATE AMNIOTRANSFERASE,AST 272 U/L (15-37); BILIRUBIN TOTAL 0.6 mg/dL (0.2-1.0); BLOOD UREA NITROGEN,BUN 13 mg/dL (7-18); CARBON DIOXIDE,CO2 26 mmol/L (21-32); CHLORIDE,CL 97 mmol/L (100-108); CREATININE 0.6 mg/dL (0.6-1.0); ESTIMATED GFR 116 mL/min (>60); GLUCOSE RANDOM 91 mg/dL (74-106); POTASSIUM,K 3.6 mmol/L (3.6-5.2); PROTEIN TOTAL,TP 8.6 g/dL (6.4-8.2); SODIUM,NA 140 mmol/L (140-148)
[2023-11-11 16:42] LABS: AMPHETAMINES SCREEN, URINE NEGATIVE (NEGATIVE); BARBITURATE SCREEN,URINE NEGATIVE (NEGATIVE); BENZODIAZEPINES SCREEN,URINE NEGATIVE (NEGATIVE); METHADONE SCREEN, URINE NEGATIVE (NEGATIVE); METHAMPHETAMINES SCREEN, URINE NEGATIVE (NEGATIVE); OXYCODONE SCREEN,URINE NEGATIVE (NEGATIVE); PROPOXYPHENE SCREEN,URINE NEGATIVE (NEGATIVE); THC SCREEN,URINE 50 NG/ML NEGATIVE (NEGATIVE)
[2023-11-11 16:46] LABS: ANION GAP 20.6 mmol/L (5.0-14.0)
[2023-11-11 16:50] VITALS: BP 131/82; PULSE 92
[2023-11-11] MEDS ORDERED: Albuterol/Ipratropium 3.0-0.5 MG/3 ML Neb Soln NEB ONE (17:00)
[2023-11-11 17:11] LABS: CORONAVIRUS COVID-19 NAA NEGATIVE (NEGATIVE); INFLUENZA A NAA NEGATIVE (NEGATIVE); INFLUENZA B NAA NEGATIVE (NEGATIVE); RESPIRATORY SYNCYTIAL VIR NAA NEGATIVE (NEGATIVE)
[2023-11-11] MEDS ORDERED: Nicotine Polacrilex 2 MG Gum CHEW PRN (18:11)
== END 2023-11-11 19:56 | disposition left against medical advice (07) ==
LOC: JP.ED 16:02
DX: R45.851 Suicidal ideations (principal); F10.10 Alcohol abuse, uncomplicated; I50.9 Heart failure, unspecified; I25.2 Old myocardial infarction; E03.9 Hypothyroidism, unspecified; F17.200 Nicotine dependence, unspecified, uncomplicated; Z86.16 Personal history of COVID-19; Z90.49 Acquired absence of other specified parts of digestive tract; Z88.0 Allergy status to penicillin; Z90.710 Acquired absence of both cervix and uterus; Z88.2 Allergy status to sulfonamides; Z88.8 Allergy status to other drugs, medicaments and biological substances; Z79.899 Other long term (current) drug therapy; Z79.82 Long term (current) use of aspirin; Z20.822 Contact with and (suspected) exposure to COVID-19
CPT/HCPCS: 0241U; 36415; 80053; 80305; 80307; 84443; 84484; 85025; 93005; 99285

== ENCOUNTER 2023-11-12 11:59 | Emergency (ER) | payer MEDICAID ==
[2023-11-12 12:24] VITALS: BP 130/82; PULSE 74
[2023-11-12] MEDS ORDERED: Nicotine 14 MG/24 Hr Patch TRDERM ONE (12:36)
[2023-11-12 12:40] LABS: AMPHETAMINES SCREEN, URINE NEGATIVE (NEGATIVE); BARBITURATE SCREEN,URINE NEGATIVE (NEGATIVE); BENZODIAZEPINES SCREEN,URINE NEGATIVE (NEGATIVE); METHADONE SCREEN, URINE NEGATIVE (NEGATIVE); METHAMPHETAMINES SCREEN, URINE NEGATIVE (NEGATIVE); OXYCODONE SCREEN,URINE NEGATIVE (NEGATIVE); PROPOXYPHENE SCREEN,URINE NEGATIVE (NEGATIVE); THC SCREEN,URINE 50 NG/ML NEGATIVE (NEGATIVE)
[2023-11-12 12:54] LABS: BASOPHILS ABSOLUTE AUTO 0.09 K/uL (0.00-0.10); BASOPHILS PERCENT AUTO 0.9 % (0.1-1.3); EOSINOPHILS PERCENT AUTO 0.2 % (0.0-5.4); HEMATOCRIT 49.1 % (34.3-46.0); HEMOGLOBIN 17.5 g/dL (11.2-15.5); IMMATURE GRAN ABSOLUTE AUTO 0.04 K/uL (0.00-0.23); IMMATURE GRAN PERCENT AUTO 0.4 % (0.0-0.7); LYMPHOCYTES ABSOLUTE AUTO 2.51 K/uL (0.8-3.3); LYMPHOCYTES PERCENT AUTO 25.8 % (11.4-47.7); MEAN CORPUSCULAR HGB CONC 35.6 g/dL (31.6-35.5); MEAN CORPUSCULAR VOLUME 95.5 fL (81.4-99.0); MONOCYTES PERCENT AUTO 9.3 % (3.3-12.6); NEUTROPHILS ABSOLUTE AUTO 6.16 K/uL (1.0-7.6); NEUTROPHILS PERCENT AUTO 63.4 % (40.0-78.1); PLATELET COUNT,PLT 198 K/uL (130-375); RED BLOOD CELL COUNT 5.14 M/uL (3.77-5.24); WHITE BLOOD CELL COUNT,WBC 9.7 K/uL (3.2-11.0)
[2023-11-12 12:57] LABS: EOSINOPHILS ABSOLUTE AUTO 0.02 K/uL (0.00-0.40)
[2023-11-12 13:00] LABS: CHLORIDE,CL 94 mmol/L (100-108); POTASSIUM,K 3.4 mmol/L (3.6-5.2)
[2023-11-12 13:12] LABS: A/G RATIO 1.3 (1.2-2.2); ALANINE AMINOTRANSFERASE,ALT 266 U/L (12-78); ALBUMIN 4.9 g/dL (3.4-5.0); ALKALINE PHOSPHATASE 77 U/L (46-116); ASPARTATE AMNIOTRANSFERASE,AST 226 U/L (15-37); BILIRUBIN TOTAL 1.3 mg/dL (0.2-1.0); BLOOD UREA NITROGEN,BUN 14 mg/dL (7-18); CALCIUM 9.6 mg/dL (8.5-10.1); CARBON DIOXIDE,CO2 20 mmol/L (21-32); CREATININE 0.7 mg/dL (0.6-1.0); EST CRCL DRUG DOSING (CG) 102.85 mL/min; ESTIMATED GFR 111 mL/min (>60); GLUCOSE RANDOM 126 mg/dL (74-106); PROTEIN TOTAL,TP 8.7 g/dL (6.4-8.2); SODIUM,NA 136 mmol/L (140-148)
[2023-11-12 13:13] LABS: ANION GAP 25.4 mmol/L (5.0-14.0)
== END 2023-11-12 16:21 | disposition home or self-care (01) ==
LOC: JP.ED 11:59
DX: F10.10 Alcohol abuse, uncomplicated (principal); F17.210 Nicotine dependence, cigarettes, uncomplicated; J45.909 Unspecified asthma, uncomplicated; K21.9 Gastro-esophageal reflux disease without esophagitis; E03.9 Hypothyroidism, unspecified; E78.00 Pure hypercholesterolemia, unspecified; I25.2 Old myocardial infarction; I50.9 Heart failure, unspecified; Z79.01 Long term (current) use of anticoagulants; Z79.899 Other long term (current) drug therapy; Z90.49 Acquired absence of other specified parts of digestive tract; Z90.710 Acquired absence of both cervix and uterus; Z88.0 Allergy status to penicillin; Z88.1 Allergy status to other antibiotic agents; Y90.8 Blood alcohol level of 240 mg/100 ml or more
CPT/HCPCS: 36415; 80053; 80305; 80307; 85025; 99283; A9270

== ENCOUNTER 2024-06-19 03:30 | Emergency (ER) | payer MEDICAID ==
[2024-06-19 04:03] VITALS: BP 110/82; PULSE 89
[2024-06-19 04:03] LABS: BASOPHILS ABSOLUTE AUTO 0.07 K/uL (0.00-0.10); BASOPHILS PERCENT AUTO 0.6 % (0.1-1.3); EOSINOPHILS ABSOLUTE AUTO 0.11 K/uL (0.00-0.40); HEMATOCRIT 46.4 % (34.3-46.0); HEMOGLOBIN 16.7 g/dL (11.2-15.5); IMMATURE GRAN ABSOLUTE AUTO 0.03 K/uL (0.00-0.23); IMMATURE GRAN PERCENT AUTO 0.3 % (0.0-0.7); LYMPHOCYTES ABSOLUTE AUTO 5.51 K/uL (0.8-3.3); LYMPHOCYTES PERCENT AUTO 49.3 % (11.4-47.7); MEAN CORPUSCULAR HEMOGLOBIN 33.3 pg (31.6-35.5); MEAN CORPUSCULAR VOLUME 92.4 fL (81.4-99.0); MONOCYTES ABSOLUTE AUTO 0.78 K/uL (0.20-0.90); NEUTROPHILS ABSOLUTE AUTO 4.68 K/uL (1.0-7.6); NEUTROPHILS PERCENT AUTO 41.8 % (40.0-78.1); PLATELET COUNT,PLT 275 K/uL (130-375); RED BLOOD CELL COUNT 5.02 M/uL (3.77-5.24); WHITE BLOOD CELL COUNT,WBC 11.2 K/uL (3.2-11.0)
[2024-06-19 04:07] LABS: APPEARANCE,URINE CLEAR (CLEAR); BILIRUBIN,URINE NEGATIVE (NEGATIVE); COLOR,URINE YELLOW (YELLOW); GLUCOSE,URINE NEGATIVE (NEGATIVE); KETONES,URINE NEGATIVE (NEGATIVE); LEUKOCYTE ESTERASE,URINE NEGATIVE (NEGATIVE); NITRITE,URINE NEGATIVE (NEGATIVE); OCCULT BLOOD,URINE TRACE-INTACT (NEGATIVE); PROTEIN,URINE NEGATIVE (NEGATIVE); UROBILINOGEN,URINE 0.2 EU/dL (0.2-1.0)
[2024-06-19 04:13] LABS: ANION GAP 11.7 mmol/L (5.0-14.0); CALCIUM 8.6 mg/dL (8.5-10.1); CREATININE 0.6 mg/dL (0.6-1.0); EST CRCL DRUG DOSING (CG) 119.67 mL/min; POTASSIUM,K 3.6 mmol/L (3.6-5.2)
[2024-06-19 04:19] LABS: AMORPHOUS SEDIMENT,URINE NOT SEEN; BACTERIA,URINE RARE; EPITHELIAL CELLS,URINE FEW; MUCUS,URINE NOT SEEN; RBC,URINE 0-5 (0-5); WBC,URINE 0-5 (0-5)
[2024-06-19] MEDS: Nicotine 14 MG/24 Hr Patch TRDERM ONE (04:19)
[2024-06-19 04:20] LABS: AMPHETAMINES SCREEN, URINE NEGATIVE (NEGATIVE); BARBITURATE SCREEN,URINE NEGATIVE (NEGATIVE); BENZODIAZEPINES SCREEN,URINE NEGATIVE (NEGATIVE); METHADONE SCREEN, URINE NEGATIVE (NEGATIVE); METHAMPHETAMINES SCREEN, URINE NEGATIVE (NEGATIVE); OXYCODONE SCREEN,URINE NEGATIVE (NEGATIVE); PROPOXYPHENE SCREEN,URINE NEGATIVE (NEGATIVE); THC SCREEN,URINE 50 NG/ML NEGATIVE (NEGATIVE)
== END 2024-06-19 11:05 | disposition home or self-care (01) ==
LOC: JP.ED 03:30
DX: R45.851 Suicidal ideations (principal); F10.129 Alcohol abuse with intoxication, unspecified; I25.2 Old myocardial infarction; F17.210 Nicotine dependence, cigarettes, uncomplicated; Z86.16 Personal history of COVID-19; Z90.49 Acquired absence of other specified parts of digestive tract; Z90.710 Acquired absence of both cervix and uterus; Z79.899 Other long term (current) drug therapy; Z79.82 Long term (current) use of aspirin; Z88.0 Allergy status to penicillin; Z88.2 Allergy status to sulfonamides; Z88.1 Allergy status to other antibiotic agents
CPT/HCPCS: 36415; 80048; 80305; 80307; 81001; 81025; 85025; 99284; 99285; A9270

== ENCOUNTER 2024-12-03 14:03 | Emergency (ER) | payer MEDICAID ==
[2024-12-03 14:51] LABS: BASOPHILS ABSOLUTE AUTO 0.08 K/uL (0.00-0.10); BASOPHILS PERCENT AUTO 0.8 % (0.1-1.3); EOSINOPHILS ABSOLUTE AUTO 0.11 K/uL (0.00-0.40); EOSINOPHILS PERCENT AUTO 1.1 % (0.0-5.4); HEMATOCRIT 44.7 % (34.3-46.0); HEMOGLOBIN 15.6 g/dL (11.2-15.5); IMMATURE GRAN PERCENT AUTO 0.1 % (0.0-0.7); LYMPHOCYTES PERCENT AUTO 40.4 % (11.4-47.7); MEAN CORPUSCULAR HEMOGLOBIN 33.4 pg (31.6-35.5); MEAN CORPUSCULAR HGB CONC 34.9 g/dL (31.6-35.5); MEAN CORPUSCULAR VOLUME 95.7 fL (81.4-99.0); MONOCYTES ABSOLUTE AUTO 0.91 K/uL (0.20-0.90); MONOCYTES PERCENT AUTO 9.4 % (3.3-12.6); NEUTROPHILS ABSOLUTE AUTO 4.65 K/uL (1.0-7.6); NEUTROPHILS PERCENT AUTO 48.2 % (40.0-78.1); PLATELET COUNT,PLT 335 K/uL (130-375); RED BLOOD CELL COUNT 4.67 M/uL (3.77-5.24); WHITE BLOOD CELL COUNT,WBC 9.7 K/uL (3.2-11.0)
[2024-12-03 14:53] LABS: IMMATURE GRAN ABSOLUTE AUTO 0.01 K/uL (0.00-0.23)
[2024-12-03 15:11] LABS: A/G RATIO 1.4 (1.2-2.2); ALANINE AMINOTRANSFERASE,ALT 40 U/L (12-78); ALKALINE PHOSPHATASE 44 U/L (46-116); ASPARTATE AMNIOTRANSFERASE,AST 18 U/L (15-37); BILIRUBIN TOTAL 0.4 mg/dL (0.2-1.0); BLOOD UREA NITROGEN,BUN 8 mg/dL (7-18); CALCIUM 8.8 mg/dL (8.5-10.1); CARBON DIOXIDE,CO2 29 mmol/L (21-32); CHLORIDE,CL 102 mmol/L (100-108); CREATININE 0.7 mg/dL (0.6-1.0); EST CRCL DRUG DOSING (CG) 101.81 mL/min; ESTIMATED GFR 111 mL/min (>60); GLUCOSE RANDOM 147 mg/dL (74-106); MAGNESIUM 1.9 mg/dL (1.8-2.4); POTASSIUM,K 3.9 mmol/L (3.6-5.2); PROTEIN TOTAL,TP 6.9 g/dL (6.4-8.2); SODIUM,NA 139 mmol/L (140-148)
[2024-12-03 15:12] LABS: ANION GAP 11.9 mmol/L (5.0-14.0)
[2024-12-03 16:06] VITALS: BP 99/64; PULSE 61
== END 2024-12-03 16:21 | disposition home or self-care (01) ==
LOC: JP.ED 14:03
DX: R42 Dizziness and giddiness (principal); I25.2 Old myocardial infarction; J45.909 Unspecified asthma, uncomplicated; M19.90 Unspecified osteoarthritis, unspecified site; E03.9 Hypothyroidism, unspecified; F17.210 Nicotine dependence, cigarettes, uncomplicated; Z86.16 Personal history of COVID-19; Z90.49 Acquired absence of other specified parts of digestive tract; Z90.710 Acquired absence of both cervix and uterus; Z88.0 Allergy status to penicillin; Z88.2 Allergy status to sulfonamides; Z88.1 Allergy status to other antibiotic agents; Z88.8 Allergy status to other drugs, medicaments and biological substances; Z79.51 Long term (current) use of inhaled steroids; Z79.82 Long term (current) use of aspirin; Z79.899 Other long term (current) drug therapy
CPT/HCPCS: 36415; 70450; 70450-26; 72125; 72125-26; 76377; 76377-26; 80053; 83735; 85025; 99284

== ENCOUNTER 2024-12-08 16:25 | Emergency (ER) | payer MEDICAID ==
[2024-12-08 16:42] VITALS: BP 114/63; PULSE 92
[2024-12-08] MEDS: HYDROmorphone 1 MG/ML Syringe IM ONE (17:12)
[2024-12-08] MEDS: Ketorolac 15 MG/ML SDV IM ONE (17:12)
[2024-12-08] MEDS: LORazepam 1 MG Tab PO ONE (18:07)
[2024-12-08] MEDS ORDERED: Sodium Chloride 0.9% 10 ML Syringe FLUSH PRN (18:31)
[2024-12-08] MEDS: HYDROmorphone 1 MG/ML Syringe IVPUSH ONE (19:00)
[2024-12-08] MEDS: Gabapentin 300 MG Cap PO ONE (19:40)
== END 2024-12-08 19:51 | disposition home or self-care (01) ==
LOC: JP.ED 16:25
DX: G54.2 Cervical root disorders, not elsewhere classified (principal); I25.2 Old myocardial infarction; F17.210 Nicotine dependence, cigarettes, uncomplicated; I10 Essential (primary) hypertension; E78.00 Pure hypercholesterolemia, unspecified; J44.9 Chronic obstructive pulmonary disease, unspecified; Z90.710 Acquired absence of both cervix and uterus; Z88.0 Allergy status to penicillin; Z88.1 Allergy status to other antibiotic agents; Z88.2 Allergy status to sulfonamides; Z79.51 Long term (current) use of inhaled steroids; Z88.6 Allergy status to analgesic agent; Z88.8 Allergy status to other drugs, medicaments and biological substances
CPT/HCPCS: 96372; 96374; 99283; A9270; J1171; J1885